=== PATIENT | male | born 1960 | race Caucasian/White ===

== ENCOUNTER 2017-06-15 16:00 | Emergency (ER) | payer OTHER | END 2017-06-15 17:35 | disposition home or self-care (01) | LOC: M ED 16:00 | DX: S01.532A Puncture wound without foreign body of oral cavity, initial encounter (principal); W22.8XXA Striking against or struck by other objects, initial encounter; Y92.89 Other specified places as the place of occurrence of the external cause; G47.30 Sleep apnea, unspecified; Z88.0 Allergy status to penicillin; Z79.899 Other long term (current) drug therapy | CPT/HCPCS: 99283 ==

== ENCOUNTER 2017-10-26 17:40 | Emergency (ER) | payer OTHER | END 2017-10-26 19:53 | disposition home or self-care (01) | LOC: M ED 17:40 | DX: M65.28 Calcific tendinitis, other site (principal); E07.9 Disorder of thyroid, unspecified; G47.33 Obstructive sleep apnea (adult) (pediatric); Z79.890 Hormone replacement therapy; Z88.0 Allergy status to penicillin | CPT/HCPCS: 73080 ==

== ENCOUNTER 2018-02-02 07:58 | Emergency (ER) | payer OTHER ==
[2018-02-02 08:28] LABS: BEDSIDE GLUCOSE 118 MG/DL (70-105)
[2018-02-02] MEDS: NS 1,000 ML IV (08:48)
[2018-02-02 08:49] LABS: BASO % 0.3 % (0.0-1.0); EOS # 0.1 10^3/uL (0.0-0.50); EOS % 2.2 % (0.0-3.0); HEMATOCRIT 43.3 % (42.0-52.0); HEMOGLOBIN 14.5 g/dl (13.5-17.5); IMMATURE GRANULOCYTE % 0.5 % (0-3.0); LYMPH % 48.2 % (24.0-44.0); MEAN CORPUSCULAR HEMOGLOBIN 29.6 pg (27.0-33.0); MEAN CORPUSCULAR HGB CONC 33.5 g/dl (32.0-36.5); MEAN CORPUSCULAR VOLUME 88.4 fl (80.0-96.0); MONO # 0.7 10^3/uL (0.0-0.8); MONO % 10.7 % (0.0-5.0); NEUTROPHILS # 2.4 10^3/uL (1.8-7.7); NEUTROPHILS % 38.1 % (36.0-66.0); PLATELET COUNT, AUTOMATED 239 10^3/uL (150-450); RED CELL DISTRIBUTION WIDTH 12.7 % (11.5-14.5); WHITE BLOOD COUNT 6.3 10^3/uL (4.0-10.0)
[2018-02-02] MEDS: METOCLOPRAMIDE INJ 10MG/2ML VIAL (J2765) IV (08:49)
[2018-02-02 09:14] LABS: ANION GAP 4 MEQ/L (8-16); BLOOD UREA NITROGEN 20 MG/DL (7-18); CALCIUM LEVEL 9.1 MG/DL (8.5-10.1); CARBON DIOXIDE LEVEL 29 MEQ/L (21-32); CHLORIDE LEVEL 105 MEQ/L (98-107); CPK CREATINE PHOSPHOKINASE 124 U/L (39-308); CREATININE FOR GFR 0.98 MG/DL (0.70-1.30); GLOMERULAR FILTRATION RATE > 60.0 (>56); GLUCOSE, FASTING 114 MG/DL (70-100); MB/CK RELATIVE INDEX 1.21 (< OR =4); POTASSIUM SERUM 4.2 MEQ/L (3.5-5.1); SODIUM LEVEL 138 MEQ/L (136-145); TROPONIN I < 0.02 NG/ML (< 0.10)
[2018-02-02 09:26] LABS: INR 0.87; PARTIAL THROMBOPLASTIN TIME 23.9 SECONDS (25.4-37.6)
== END 2018-02-02 10:47 | disposition left against medical advice (07) ==
LOC: M ED 07:58
DX: R51 Headache (principal); R47.01 Aphasia; H53.8 Other visual disturbances; G47.33 Obstructive sleep apnea (adult) (pediatric); E07.9 Disorder of thyroid, unspecified; Z87.891 Personal history of nicotine dependence; Z88.0 Allergy status to penicillin; Z79.899 Other long term (current) drug therapy; Z79.1 Long term (current) use of non-steroidal anti-inflammatories (NSAID)
CPT/HCPCS: J2765

== ENCOUNTER 2018-08-27 17:01 | Emergency (ER) | payer OTHER ==
[~2018-08-27] VITALS: Ht 175.3 cm; Wt 102.3 kg
[~2018-08-27 17:01] MED LIST: AMBI10TA OR; DOXY100C37 PO; MINI2CAP OR; NAPR-837 PO; SYNT75TA; VENL75TA2 OR; ZOCO40TA OR
[2018-08-27] MEDS ORDERED: ATOR40TA75 (17:09)
[2018-08-27 17:41] VITALS: BP 138/88
[2018-08-27] MEDS ORDERED: NEOSPORIN TOP OINT 15GM TOP PRN (18:00)
== END 2018-08-27 18:11 | disposition home or self-care (01) ==
LOC: M ED 17:01
DX: S91.205A Unspecified open wound of left lesser toe(s) with damage to nail, initial encounter (principal); W22.09XA Striking against other stationary object, initial encounter; Y92.830 Public park as the place of occurrence of the external cause; Z88.0 Allergy status to penicillin; Z79.899 Other long term (current) drug therapy

== ENCOUNTER 2019-03-31 08:44 | Emergency (ER) | payer OTHER ==
[~2019-03-31] VITALS: Ht 175.3 cm; Wt 117.5 kg
[~2019-03-31 08:44] MED LIST changes: +ATOR40TA75
[2019-03-31] MEDS ORDERED: AMLO5TAB6 (08:54)
[2019-03-31] MEDS ORDERED: SYNT88TA2 (08:54)
--- NOTE | 2019-03-31 10:10 | REP ---
Left tibia-fibula four views : There is no fracture or dislocation. Mineralization and joint spaces are normal. There are no calcifications or foreign bodies. Impression: Negative left tibia-fibula . Electronically Signed by Torrey Velázquez MD 03/31/2019 10:01 A
--- NOTE | 2019-03-31 10:50 | REP ---
Left lower extremity deep vein duplex ultrasound: The deep veins demonstrate normal compression, normal Doppler color flow and normal Doppler waveforms with respiration and augmentation from the popliteal vein to the common femoral vein. Impression: There is no left lower extremity deep vein thrombus. Electronically Signed by Torrey Velázquez MD 03/31/2019 10:42 A
--- NOTE | 2019-03-31 10:53 | REP ---
Soft tissue ultrasound of the left mid calf/ upper calf: The patient fell midcalf pain and pop. Ultrasonography of the left mid calf/upper calf area demonstrates no focal fluid collections or masses. Impression: Negative soft tissue ultrasound of the left mid calf/upper calf area. Electronically Signed by Torrey Velázquez MD 03/31/2019 10:44 A
[2019-03-31] MEDS ORDERED: KETO10TAB PO (11:20)
[2019-03-31] MEDS ORDERED: CYCL10TA PO (11:20)
[2019-03-31] MEDS ORDERED: ACETAMINOPHEN 325 MG TAB As Ordered ONE (11:22)
[2019-03-31] MEDS ORDERED: KETOROLAC 60 MG/2 ML VIAL (J1885) IM ONE (11:30)
[2019-03-31] MEDS ORDERED: ACETAMINOPHEN 325 MG TAB PO ONE (11:30)
[2019-03-31 11:53] VITALS: BP 142/94
== END 2019-03-31 11:54 | disposition home or self-care (01) ==
LOC: M ED 08:44
DX: S86.912A Strain of unspecified muscle(s) and tendon(s) at lower leg level, left leg, initial encounter (principal); X58.XXXA Exposure to other specified factors, initial encounter; Y92.89 Other specified places as the place of occurrence of the external cause; Y99.0 Civilian activity done for income or pay; Z79.899 Other long term (current) drug therapy; Z88.0 Allergy status to penicillin
CPT/HCPCS: 73590; 76882; 93971; 96372; 99283; J1885

== ENCOUNTER → 2019-06-16 | Outpatient (CLI) | payer OTHER ==
[~2019-06-16] MED LIST changes: +AMLO5TAB6; +CYCL-707 PO; +KETO10TAB PO; +SYNT88TA2
== END ==
LOC: M LABSMTC 10:03
PROVIDERS: ATTEND Family Medicine
DX: Z11.59 Encounter for screening for other viral diseases (principal); Z20.818 Contact with and (suspected) exposure to other bacterial communicable diseases

== ENCOUNTER 2020-01-10 07:17 | Emergency (ER) | payer OTHER ==
[~2020-01-10] VITALS: Ht 177.8 cm; Wt 117.7 kg
[~2020-01-10 07:17] MED LIST changes: +AMLO1TAB24; -AMLO5TAB6
[2020-01-10] MEDS ORDERED: IBUP-1022 PO (07:30)
[2020-01-10] MEDS ORDERED: CLIN300C5 PO (07:30)
[2020-01-10] MEDS ORDERED: DOXYCYCLINE HYCLATE 100MG TABLET PO ONE (08:15)
[2020-01-10 08:39] VITALS: BP 125/93
[2020-01-12 21:07] LABS: Lyme Disease IgG Ab 18 kDa Ban Absent (.); Lyme Disease IgG Ab 23 kDa Ban Absent (.); Lyme Disease IgG Ab 28 kDa Ban Absent (.); Lyme Disease IgG Ab 30 kDa Ban Absent (.); Lyme Disease IgG Ab 39 kDa Ban Present (.); Lyme Disease IgG Ab 41 kDa Ban Present (.); Lyme Disease IgG Ab 45 kDa Ban Absent (.); Lyme Disease IgG Ab 58 kDa Ban Absent (.); Lyme Disease IgG Ab 66 kDa Ban Absent (.); Lyme Disease IgG Ab 93 kDa Ban Absent (.); Lyme Disease IgG West Blot Int Negative (.); Lyme Disease IgG/IgM Antibodie <0.91 ISR (0.00-0.90); Lyme Disease IgM Ab 23 kDa Ban Absent (.); Lyme Disease IgM Ab 39 kDa Ban Absent (.); Lyme Disease IgM Ab 41 kDa Ban Absent (.); Lyme Disease IgM Ab Quantitati 0.88 index (0.00-0.79); Lyme Disease IgM West Blot Int Negative (.)
== END 2020-01-10 08:40 | disposition home or self-care (01) ==
LOC: M ED 07:17
DX: S70.261A Insect bite (nonvenomous), right hip, initial encounter (principal); W57.XXXA Bitten or stung by nonvenomous insect and other nonvenomous arthropods, initial encounter; Y92.89 Other specified places as the place of occurrence of the external cause; I10 Essential (primary) hypertension; E78.5 Hyperlipidemia, unspecified; E03.9 Hypothyroidism, unspecified; Z88.0 Allergy status to penicillin; Z79.899 Other long term (current) drug therapy; Z79.2 Long term (current) use of antibiotics

== ENCOUNTER 2021-07-15 19:12 | Emergency (ER) | payer OTHER ==
[~2021-07-15] VITALS: Ht 175.3 cm; Wt 99.2 kg
[~2021-07-15 19:12] MED LIST changes: +CLIN-250 PO; +DOXY-443 PO; -DOXY100C37 PO; +IBUP-1022 PO
[2021-07-15 19:13] VITALS: BP 143/97
== END 2021-07-15 19:28 | disposition left against medical advice (07) ==
LOC: M ED 19:12
DX: Z53.21 Procedure and treatment not carried out due to patient leaving prior to being seen by health care provider (principal)

== ENCOUNTER → 2021-10-23 | Outpatient (CLI) | payer OTHER | LOC: M RAD 14:34 | PROVIDERS: ATTEND Family Medicine | DX: S83.241A Other tear of medial meniscus, current injury, right knee, initial encounter (principal); M71.21 Synovial cyst of popliteal space [Baker], right knee ==

== ENCOUNTER 2022-01-14 12:39 | Emergency (ER) | payer OTHER ==
[~2022-01-14] VITALS: Ht 175.3 cm; Wt 94.1 kg
[2022-01-14 14:53] VITALS: BP 157/96
== END 2022-01-14 14:55 | disposition home or self-care (01) ==
LOC: M ED 12:39
DX: G89.18 Other acute postprocedural pain (principal); I10 Essential (primary) hypertension; E78.5 Hyperlipidemia, unspecified; E03.9 Hypothyroidism, unspecified; Z88.0 Allergy status to penicillin; Z79.899 Other long term (current) drug therapy; Z79.891 Long term (current) use of opiate analgesic; Z79.890 Hormone replacement therapy; Z79.2 Long term (current) use of antibiotics

== ENCOUNTER 2022-03-28 07:11 | Emergency (ER) | payer OTHER ==
[~2022-03-28] VITALS: Ht 81.3 cm; Wt 96.4 kg
[2022-03-28] MEDS ORDERED: VITA100093 (07:24)
[2022-03-28] MEDS ORDERED: CYAN100050 (07:24)
[2022-03-28] MEDS ORDERED: JARD1TAB (07:24)
[2022-03-28] MEDS ORDERED: MORPHINE 4 MG/ML 1ML VIAL IV ONE (08:35)
[2022-03-28] MEDS ORDERED: ONDANSETRON 4MG 2ML VIAL IV ONE (08:35)
[2022-03-28] MEDS ORDERED: ISOVUE-370 76% 100ML VIAL As Ordered ONE (08:41)
[2022-03-28 10:29] VITALS: BP 108/78
[2022-03-28] MEDS ORDERED: HYDR-3713 PO (10:29)
== END 2022-03-28 10:58 | disposition home or self-care (01) ==
LOC: M ED 07:11
DX: S22.32XA Fracture of one rib, left side, initial encounter for closed fracture (principal); W00.0XXA Fall on same level due to ice and snow, initial encounter; Y92.096 Garden or yard of other non-institutional residence as the place of occurrence of the external cause; I10 Essential (primary) hypertension; E78.5 Hyperlipidemia, unspecified; F10.10 Alcohol abuse, uncomplicated; E03.9 Hypothyroidism, unspecified; Z88.0 Allergy status to penicillin; Z79.890 Hormone replacement therapy; Z79.899 Other long term (current) drug therapy
CPT/HCPCS: 71101; 71260; 74177; 80047; 94010; 96374; 96375; 99284; J2270; J2405

== ENCOUNTER 2024-09-11 12:28 | Emergency (ER) | payer OTHER ==
[~2024-09-11] VITALS: Ht 172.7 cm; Wt 104.1 kg
[~2024-09-11 12:28] MED LIST changes: +CYAN-1; +DOXY-441 PO; -DOXY-443 PO; +HYDR-3713 PO; +JARD1TAB; +VITA100093
[2024-09-11 12:30] VITALS: BP 172/98; TEMP 97.2; O2SAT 99
== END 2024-09-11 12:41 | disposition left against medical advice (07) ==
LOC: M ED 12:28
DX: Z53.21 Procedure and treatment not carried out due to patient leaving prior to being seen by health care provider (principal)

== ENCOUNTER 2024-10-05 06:02 | Day surgery (SDC) | payer OTHER ==
[~2024-10-05] VITALS: Ht 175.3 cm; Wt 105.1 kg
[~2024-10-05 06:02] MED LIST changes: +SYNT88TA2 PO; +UNRESOLVED CLARIFICATION ENTRY XX SCH
[2024-10-05] MEDS: LR 1,000 ML IV SCH (06:35)
[2024-10-05] MEDS ORDERED: MIDAZOLAM INJ 2 MG/2 ML VIAL As Ordered ONE (07:13)
[2024-10-05] MEDS ORDERED: dexAMETHasone 4 MG/ML 1 ML VIAL As Ordered ONE (07:14)
[2024-10-05] MEDS ORDERED: ONDANSETRON 4MG 2ML VIAL As Ordered ONE (07:14)
[2024-10-05] MEDS ORDERED: ROCURONIUM BROMIDE 50MG/5ML VIAL As Ordered ONE (07:14)
[2024-10-05] MEDS ORDERED: LIDOCAINE 2% 100 MG/5 ML SDV (FOR ANES.) As Ordered ONE (07:14)
[2024-10-05] MEDS ORDERED: dexmedeTOMIDine (4 MCG/ML) 200 MCG/50 ML BTL As Ordered ONE (07:15)
[2024-10-05] MEDS: ceFAZolin SOD 2 GM IV ONCE IV ONE (07:38)
[2024-10-05] MEDS ORDERED: KETOROLAC 30 MG/ML 1 ML VIAL As Ordered ONE (07:49)
[2024-10-05] MEDS ORDERED: SUGAMMADEX SODIUM 500 MG/5 ML VIAL As Ordered ONE (07:49)
[2024-10-05] MEDS ORDERED: LR 1,000 ML IV SCH (08:55)
[2024-10-05] MEDS ORDERED: HYDROMORPHONE HCL 0.5 MG/0.5 ML SYRINGE IV PRN (08:55)
[2024-10-05] MEDS: ONDANSETRON 4MG 2ML VIAL IV PRN (09:04)
[2024-10-05 09:40] VITALS: BP 143/65; TEMP 97.5; O2SAT 96
== END 2024-10-05 09:58 | disposition home or self-care (01) ==
LOC: M SDC 06:02
PROVIDERS: ATTEND Surgery
DX: K38.8 Other specified diseases of appendix (principal); R06.83 Snoring; I10 Essential (primary) hypertension; E03.9 Hypothyroidism, unspecified; Z79.899 Other long term (current) drug therapy; Z79.890 Hormone replacement therapy
CPT/HCPCS: 44970; 88304; J0665; J0690; J1100; J1885; J2250; J2405; J3010; S2900

== ENCOUNTER → 2025-01-13 | Outpatient (REF) | payer OTHER ==
[~2025-01-13] MED LIST changes: -IBUP-1022 PO; +IBUP600T42 PO; -UNRESOLVED CLARIFICATION ENTRY XX SCH
[2025-01-17 21:36] LABS: LYME TOTAL ANTIBODY CIA <= 0.90 Index (<=0.90)
== END ==
LOC: M LAB REF 10:55
PROVIDERS: ATTEND Physician Assistant
DX: R53.83 Other fatigue (principal)